=== PATIENT | female | born 1955 | race Caucasian/White ===

== ENCOUNTER 2017-01-29 18:34 | Inpatient (IN) | payer MEDICAID, OTHER ==
[~2017-01-29] VITALS: Ht 167.6 cm; Wt 73.2 kg
[2017-01-29] MEDS ORDERED: SOD CHLORIDE 0.9% 500 ML IV STA (21:22)
[2017-01-29 21:46] LABS: ADD SCAN DIFF NO
[2017-01-29 21:51] LABS: BASOPHILS % 0.4 % (0.0-2.0); EOSINOPHILS # 0.1 10^3/ul (0.0-0.5); HEMOGLOBIN 16.8 g/dl (12.0-16.0); LYMPHOCYTES # 2.5 10^3/ul (0.8-2.9); LYMPHOCYTES % 27.1 % (15.0-51.0); MEAN CORPUSCULAR HEMOGLOBIN 34.7 pg (29.0-33.0); MEAN CORPUSCULAR VOLUME 99.2 fl (82.0-101.0); MEAN PLATELET VOLUME 10.2 fl (7.4-10.4); MONOCYTE # 0.8 10^3/ul (0.3-0.9); MONOCYTES % 9.1 % (0.0-11.0); NEUTROPHIL # 5.7 10^3/ul (1.6-7.5); PLATELET COUNT 256 10^3/UL (140-415); RED BLOOD COUNT 4.84 10^6/ul (4.20-5.40); RED CELL DISTRIBUTION WIDTH 12.3 % (11.5-14.5); WHITE BLOOD COUNT 9.1 10^3/ul (4.8-10.8)
[2017-01-29 22:00] LABS: POTASSIUM 3.3 mmol/L (3.5-5.1)
[2017-01-29 22:01] LABS: INR 0.98; PARTIAL THROMBOPLASTIN TIME 27.4 Sec (25.0-35.0)
[2017-01-29 22:02] LABS: CREATININE 0.72 mg/dl (0.44-1.00)
[2017-01-29 22:03] LABS: CALCIUM 9.5 mg/dl (8.4-10.2)
[2017-01-29] MEDS ORDERED: morphine 4 MG/ML VIAL IV STA (22:10)
[2017-01-29] MEDS ORDERED: ONDANSETRON 4 MG INJ IV STA (22:10)
[2017-01-29 22:15] LABS: TROPONIN-I 0.012 ng/ml (0.00-0.12)
--- NOTE | 2017-01-29 22:20 | RADRPT ---
PROCEDURE: XR Chest. CLINICAL INDICATION: Syncope. TECHNIQUE: Portable AP upright view of the chest was obtained. COMPARISON: None available. FINDINGS: The cardiomediastinal silhouette is within normal limits. The lungs are clear. There is no evidenc e for pleural effusion, pneumothorax or pulmonary vascular congestion. The osseous structures are i ntact with no evidence for acute abnormality. RPTAT:HJJR IMPRESSION: No evidence for acute intrathoracic pathology. Physician Keyona Date Time Electronically viewed and signed by Physician Keyona on 01/29/2017 22:19 JR/
[2017-01-29] MEDS ORDERED: ESCI20TA38 PO (22:23)
[2017-01-29] MEDS ORDERED: GABA-528 PO (22:24)
[2017-01-29] MEDS ORDERED: IBUP800T25 PO (22:24)
--- NOTE | 2017-01-29 22:38 | RADRPT ---
PROCEDURE: CT Brain without contrast. CLINICAL INDICATION: Syncope TECHNIQUE: A CT of the brain was performed on a GE ZendyPlacepeed 64-slice CT scanner utilizing axial imaging from the skull base through the vertex without IV contrast. Multiplanar reformatted images were made. Images were reviewed on a PACS workstation. The CTDIvol is there was 41.30 mGy and the DLP is 789.11 mGycm. One of the following 3 dose reduction techniques were used: Automated exposure control; adjustment of the mA and/or kV according to patient size; or use of iterative reconstruction technique. COMPARISON: None available FINDINGS: There is no intracranial hemorrhage, mass effect, or midline shift. No extra-axial fluid collection is seen. The ventricles and sulci are age appropriate. Mild diffuse volume loss is present. Subtl e decreased attenuation is present in the bilateral centrum semiovale, periventricular white matter all compatible with mild chronic microvascular ischemic disease. moderate vascular calcifications o f the bilateral intracranial internal carotid arteries are present. The visualized scalp and calvarium are normal. The bilateral orbits are normal. The bilateral para nasal sinuses, mastoid air cells and middle ear cavities are clear. The presence of a left frontal 1 cm exostosis is noted. IMPRESSION: 1. No evidence of acute intracranial hemorrhage, infarcts or acute intracranial pathology. 2. Mild chronic microvascular ischemic disease and mild diffuse volume loss. 3. Mild atherosclerotic vascular disease RPTAT: HDC .Amy Collins MD, MD Date Time Electronically viewed and signed by .Amy Collins MD, MD on 01/29/2017 22:37 .C/
--- NOTE | 2017-01-29 23:04 | ERA ---
ER Documentation Chief Complaint Date/Time DATE: 01/29/17 TIME: 23:03 Chief Complaint S/P FALL 2 DAYS AGO, C/O GEN. BODY PAIN DENIES KO. NO BLOOD THINNERS HPI This is 58-year-old female status post fall 2 days ago. Complains of generalized body pain. She has had multiple falls over the past month. She does not know whether or not she passed out. Denies any chest pain. Denies any nausea vomiting fevers or chills. Denies any other current complaints. ROS All systems reviewed and are negative except as per history of present illness. Medications Home Meds Reported Medications Ibuprofen* (Ibuprofen*) 800 Mg Tab, 800 MG PO TID, TAB 01/29/17 Gabapentin* (Gabapentin*) 800 Mg Tablet, 800 MG PO TID, #90 TAB 01/29/17 Escitalopram Oxalate* (Escitalopram Oxalate*) 20 Mg Tablet, 20 MG PO DAILY, #30 TAB 01/29/17 Allergies Allergies: Coded Allergies: Penicillins (Unverified Allergy, Unknown, 01/29/17) aspirin (Unverified Allergy, Unknown, 01/29/17) PMhx/Soc History of Surgery: Yes (Bilatereal Carpel Tunnel, foot sx) Anesthesia Reaction: No Hx Miscellaneous Medical Probl: Yes (Chronic back pain) Hx Alcohol Use: No Hx Substance Use: No Hx Tobacco Use: Yes Smoking Status: Current every day smoker Physical Exam Vitals Vital Signs Date Time Temp Pulse Resp B/P Pulse Ox O2 Delivery O2 Flow Rate FiO2 01/29/17 22:12 77 18 144/87 100 Room Air 01/29/17 19:32 97.0 74 20 132/70 98 Physical Exam Const: [] Head: Atraumatic Eyes: Normal Conjunctiva ENT: Normal External Ears, Nose and Mouth. Neck: Full range of motion..~ No meningismus. Resp: Clear to auscultation bilaterally Cardio: Regular rate and rhythm, no murmurs Abd: Soft, non tender, non distended. Normal bowel sounds Skin: No petechiae or rashes Back: No midline or flank tenderness Ext: No cyanosis, or edema Neur: Awake and alert Psych: Normal Mood and Affect Result Diagram: 01/29/17213101/29/172131 Results 24 hrs Laboratory Tests Test 01/29/17 21:32 01/29/17 21:57 Activated Partial Thromboplast Time 27.4Sec Ammonia < 9umol/l Anion Gap 16 Basophils # 0.010^3/ul Basophils % 0.4% Blood Urea Nitrogen 11mg/dl Calcium Level 9.5mg/dl Carbon Dioxide Level 23mmol/L Chloride Level 100mmol/L Creatinine 0.72mg/dl Eosinophils # 0.110^3/ul Eosinophils % 1.0% Glucose Level 80mg/dl Hematocrit 48.0% Hemoglobin 16.8g/dl INR International Normalized Ratio 0.98 Lymphocytes # 2.510^3/ul Lymphocytes % 27.1% Mean Corpuscular Hemoglobin 34.7pg Mean Corpuscular Hemoglobin Concent 35.0g/dl Mean Corpuscular Volume 99.2fl Mean Platelet Volume 10.2fl Monocytes # 0.810^3/ul Monocytes % 9.1% Neutrophils # 5.710^3/ul Neutrophils % 62.0% Nucleated Red Blood Cells # 0.010^3/ul Nucleated Red Blood Cells % 0.0/100WBC Platelet Count 34582^3/UL Potassium Level 3.3mmol/L Prothrombin Time 13.0Sec Prothrombin Time Ratio 1.0 Red Blood Count 4.8410^6/ul Red Cell Distribution Width 12.3% Sodium Level 136mmol/L Troponin I 0.012ng/ml White Blood Count 9.110^3/ul Bedside Glucose 81mg/dL Current Medications Medications (Trade) Dose Ordered Sig/Anthony Route PRN Reason Start Time Stop Time Status Last Admin Dose Admin Sodium Chloride (NS) 500 ml @ 500 mls/hr Q1H STAT IV 01/29/17 21:22 01/29/17 22:21 DC 01/29/17 22:01 Morphine Sulfate (morphine) 4 mg ONCE STAT IV 01/29/17 22:10 01/29/17 22:12 DC 01/29/17 22:38 Ondansetron HCl (Zofran Inj) 4 mg ONCE STAT IV 01/29/17 22:10 01/29/17 22:12 DC 01/29/17 22:37 Procedures/MDM Chest X-ray 1V Interpreted by me: Soft Tissue: No acute abnormalities Bones: No acute abnormalities Mediastinum/Cardiac Silhouette/Lungs: No acute abnormalities EKG: Rate/Rhythm: Normal Sinus Rhythm QRS, ST, T-waves: No changes consistent w/ acute ischemia Impression: No evidence of ischemia or arrhythmia Patient's syncopal symptoms are unstable at this time and require inpatient workup. No evidence of PE or dissection at this time but occult ischemia or fatal dysrhythmia cannot be ruled out. Patient will be admitted to hospitalist. Made aware at 11 PM Departure Diagnosis: Primary Impression: Syncope Qualified Code: R55 - Syncope, unspecified syncope type Condition: Serious DARIO SEGOVIA Jan 29, 2017 23:04
[2017-01-29 23:51] VITALS: TEMP 98.9
[2017-01-30] VITALS (13 sets, daily range): BP systolic 117–149; BP diastolic 56–92; PULSE 64–76; RESP 18–19; Ht 167.6 cm; Wt 73.2 kg
[2017-01-30] MEDS ORDERED: ACETAMINOPHEN 325 MG TAB PO PRN
[2017-01-30] MEDS ORDERED: ALBUTEROL/IPRATROPIUM (NEB) 3 ML AMP HHN PRN
[2017-01-30] MEDS ORDERED: MAGNESIUM HYDROXIDE 30ML CUP PO PRN
[2017-01-30] MEDS ORDERED: NITROGLYCERIN (SL) 0.4 MG TAB SL PRN
[2017-01-30] MEDS ORDERED: DOCUSATE SODIUM 100 MG CAP PO PRN
[2017-01-30] MEDS ORDERED: hydrALAzine 20 MG INJ IV PRN
[2017-01-30] MEDS ORDERED: NA PHOSPHATE/BIPHOS 133 ML ENEMA PR PRN
[2017-01-30] MEDS ORDERED: NACL 0.9% 3 ML SYG IV SCH
[2017-01-30] MEDS ORDERED: ONDANSETRON 4 MG INJ IV PRN
[2017-01-30] MEDS: LORAZEPAM 2 MG INJ IV PRN ×2 (00:51→23:19)
[2017-01-30] MEDS: SOD CHLORIDE 0.45% 1,000 ML IV SCH ×2 (00:51→13:19)
[2017-01-30 04:07] LABS: CHOL/HDL RATIO 3.1 RATIO
--- NOTE | 2017-01-30 05:23 | HP ---
DATE OF ADMISSION: 01/29/2017 The patient was seen and examined by me on 01/29/2017 at 11:30 p.m. CHIEF COMPLAINT: Syncope. HISTORY OF PRESENT ILLNESS: A 61-year-old female with past medical history of chronic back pain, to bacco use who presents with a syncopal event. The patient apparently came from home. Most of the i nformation was obtained from the ER documentation as the patient is not able to provide any informat ion at this time. In the ER, she was conversing well. Denies any recent falls, no apparent history of any arrhythmias, no palpitations. No upper or lower GI bleeding, no fevers or chills. Denies a ny lower extremity swelling as well. The syncopal appeared to occur earlier today and family johnny t her in today as well because of that incident, although again she does not recall the actual falli ng incident. When she came into the ER today, she had a head CT performed that showed no evidence o f any acute intracranial hemorrhages or infarcts or acute intracranial pathology. PAST MEDICAL HISTORY: As above. ALLERGIES: 1. PENICILLIN. 2. ASPIRIN. HOME MEDICATIONS: 1. SSRI. 2. Gabapentin 800 mg. 3. Ibuprofen 800 mg. PAST SURGICAL HISTORY: She has had bilateral carpal tunnel surgery in the past and foot surgery in the past. SOCIAL HISTORY: Denies any IV drug abuse, no alcohol use. She does smoke every day. FAMILY HISTORY: Noncontributory. PHYSICAL EXAMINATION: VITAL SIGNS: T-max 97.0, pulse 74 to 77, respirations 18 to 20, blood pressure 144 to 132 systolic over 87 to 70 diastolic, saturating 100% on room air. GENERAL: The patient is lying in bed, in no acute distress. HEENT: Pupils equal, round, reactive to light. Extraocular muscles are intact. NECK: Supple. No thyromegaly. LUNGS: Clear to auscultation bilaterally. CARDIOVASCULAR: S1, S2 heard. No rubs or gallops. ABDOMEN: Soft, nontender, nondistended. Normal bowel sounds. No rebound. No guarding. MUSCULOSKELETAL: No lower extremity edema bilaterally. NEUROLOGIC: No focal deficits. LABORATORIES: CBC is completely normal. The basic metabolic panel is normal except the potassium i s a little low at 3.3. Troponin is negative. Ammonia was normal, and again the head CT results as mentioned above. UA is pending. There was also a chest x-ray performed. Chest x-ray showed no alton dence of any acute intrathoracic pathology. ASSESSMENT AND PLAN: A 61-year-old female with a syncopal event. 1. Syncope. We need to rule out any causes such as vasovagal versus arrhythmia versus medication o veruse versus stroke. Her head CT is negative. We will go ahead and get an MRI of the brain. We w ill keep her on telemetry floor and monitor her heart rate very carefully. If there are any abnorma lities, consider cardiology consult. Again, we are going to get an echocardiogram as well. Conside r neuro checks as well, although low suspicion for a stroke at this point. Check TSH, A1c, lipid pa ashok. 2. History of chronic back pain. Continue [place] and morphine p.r.n. 3. Smoking history. We need to do smoking cessation. 4. Generalized weakness. Again could be related to patient's syncopal event. Will get a physical therapy consult as well. 4. Gastrointestinal prophylaxis. Proton pump inhibitor. 5. Deep venous thrombosis prophylaxis. Heparin subcutaneously. Dictated By: BRIAN DOTY/MARK Conf#: [id number] DID#: [id number]
[2017-01-30] MEDS: PANTOPRAZOLE (EC) 40 MG TAB PO SCH (05:41)
[2017-01-30] MEDS: HYDROCODONE/APAP (5/325) TAB PO PRN ×3 (05:45→18:16)
[2017-01-30 06:12] LABS: ADD SCAN DIFF NO
[2017-01-30 06:30] LABS: BASOPHIL # 0.1 10^3/ul (0.0-0.1); BASOPHILS % 0.7 % (0.0-2.0); EOSINOPHILS # 0.2 10^3/ul (0.0-0.5); EOSINOPHILS % 2.4 % (0.0-7.0); HEMATOCRIT 46.2 % (37.0-47.0); HEMOGLOBIN 16.1 g/dl (12.0-16.0); LYMPHOCYTES # 2.1 10^3/ul (0.8-2.9); LYMPHOCYTES % 30.7 % (15.0-51.0); MEAN CORPUSCULAR HEMOGLOBIN 35.2 pg (29.0-33.0); MEAN CORPUSCULAR HGB CONC 34.8 g/dl (32.0-37.0); MEAN CORPUSCULAR VOLUME 100.9 fl (82.0-101.0); MEAN PLATELET VOLUME 10.3 fl (7.4-10.4); MONOCYTE # 0.7 10^3/ul (0.3-0.9); MONOCYTES % 10.6 % (0.0-11.0); NEUTROPHIL # 3.8 10^3/ul (1.6-7.5); NEUTROPHILS % 55.2 % (39.0-77.0); PLATELET COUNT 213 10^3/UL (140-415); RED BLOOD COUNT 4.58 10^6/ul (4.20-5.40); RED CELL DISTRIBUTION WIDTH 12.5 % (11.5-14.5)
[2017-01-30 06:38] LABS: CREATININE 0.62 mg/dl (0.44-1.00)
[2017-01-30 06:39] LABS: CALCIUM 8.5 mg/dl (8.4-10.2)
[2017-01-30] MEDS ORDERED: HEPARIN 5,000 UNIT/0.5 ML SYG SC SCH (09:00)
--- NOTE | 2017-01-30 10:28 | PN ---
Date/Time of Note Date/Time of Note DATE: 01/30/17 TIME: 10:23 Assessment/Plan VTE Prophylaxis VTE Prophylaxis Intervention: heparin Lines/Catheters IV [facility] Peripheral IV Urinary Cath still in place: No Assessment/Plan Assessment/Plan 1. Syncope. We need to rule out any causes such as vasovagal versus arrhythmia versus medication overuse versus stroke. Her head CT is negative. We will go ahead and get an MRI of the brain. We will keep her on telemetry floor and monitor her heart rate very carefully. If there are any abnormalities , consider cardiology consult. Again, we are going to get an echocardiogram as well. Consider neuro checks as well, although low suspicion for a stroke at this point. Check TSH, A1c, lipid panel. 2. History of chronic back pain. Continue [place] and morphine p.r.n. 3. Smoking history. We need to do smoking cessation. 4. Generalized weakness. Again could be related to patient's syncopal event. Will get a physical therapy consult as well. 4. Gastrointestinal prophylaxis. Proton pump inhibitor. 5. Deep venous thrombosis prophylaxis. Heparin subcutaneously. MRI brain carotid doppler US ECHO has been ordered will follow up on results and decide for further plan Subjective 24 Hr Interval Summary Free Text/Dictation c/o dizziness, BP stable,plan for MRI today Exam/Review of Systems Vital Signs Vitals Vital Signs Date Time Temp Pulse Resp B/P Pulse Ox O2 Delivery O2 Flow Rate FiO2 01/30/17 08:08 64 01/30/17 07:47 97.5 18 141/63 93 01/29/17 23:51 Room Air Intake and Output 01/29/17 01/29/17 01/30/17 15:00 23:00 07:00 Intake Total 650 ml Balance 650 ml Exam GENERAL: The patient is lying in bed, in no acute distress. HEENT: Pupils equal, round, reactive to light. Extraocular muscles are intact. NECK: Supple. No thyromegaly. LUNGS: Clear to auscultation bilaterally. CARDIOVASCULAR: S1, S2 heard. No rubs or gallops. ABDOMEN: Soft, nontender, nondistended. Normal bowel sounds. No rebound. No guarding. MUSCULOSKELETAL: No lower extremity edema bilaterally. NEUROLOGIC: No focal deficits. Results Result Diagram: 01/30/17 0553 01/30/17 0553 Results 24 hrs Laboratory Tests Test 01/29/17 21:32 01/29/17 21:57 01/30/17 03:30 01/30/17 05:53 Activated Partial Thromboplast Time 27.4 Ammonia < 9 L Anion Gap 16 13 Basophils # 0.0 0.1 Basophils % 0.4 0.7 Blood Urea Nitrogen 11 11 Calcium Level 9.5 8.5 Carbon Dioxide Level 23 23 Chloride Level 100 105 Creatinine 0.72 0.62 Eosinophils # 0.1 0.2 Eosinophils % 1.0 2.4 Glucose Level 80 79 Hematocrit 48.0 H 46.2 Hemoglobin 16.8 H 16.1 H INR International Normalized Ratio 0.98 Lymphocytes # 2.5 2.1 Lymphocytes % 27.1 30.7 Mean Corpuscular Hemoglobin 34.7 H 35.2 H Mean Corpuscular Hemoglobin Concent 35.0 34.8 Mean Corpuscular Volume 99.2 100.9 Mean Platelet Volume 10.2 10.3 Monocytes # 0.8 0.7 Monocytes % 9.1 10.6 Neutrophils # 5.7 3.8 Neutrophils % 62.0 55.2 Nucleated Red Blood Cells # 0.0 0.0 Nucleated Red Blood Cells % 0.0 0.0 Platelet Count 256 213 Potassium Level 3.3 L 3.0 L Prothrombin Time 13.0 Prothrombin Time Ratio 1.0 Red Blood Count 4.84 4.58 Red Cell Distribution Width 12.3 12.5 Sodium Level 136 138 Troponin I 0.012 White Blood Count 9.1 7.0 # Bedside Glucose 81 Cholesterol Level 168 Cholesterol/HDL Ratio 3.1 Free Thyroxine 1.19 HDL Cholesterol 53 Hemoglobin A1c 4.7 LDL Cholesterol, Calculated 81 Triglycerides Level 168 H Medications Medications Current Medications Ondansetron HCl (Zofran Inj) 4 mg Q6H PRN IV NAUSEA AND/OR VOMITING; Start at 00:00 Acetaminophen (Tylenol Tab) 650 mg Q6H PRN PO PAIN LEVEL 1-3 OR FEVER; Start at 00:00 Acetaminophen/ Hydrocodone Bitart ([place] (5/325)) 1 tab Q6H PRN PO MODERATE PAIN LEVEL 4-6 Last administered on 01/30/17t 05:45; Admin Dose 1 TAB; Start at 00:00 Morphine Sulfate (morphine) 2 mg Q4H PRN IV SEVERE PAIN LEVEL 7-10; Start 01/30 at 00:00 Docusate Sodium (Colace) 100 mg Q12H PRN PO CONSTIPATION; Start 01/30/17 at 00: 00 Magnesium Hydroxide (Milk Of Mag) 30 ml DAILY PRN PO CONSTIPATION; Start at 00:00 Sodium Biphosphate/ Sodium Phosphate (Fleet Enema) 133 ml DAILY PRN OR CONSTIPATION; Start 01/30/17 at 00:00 Pantoprazole (Protonix Tab) 40 mg DAILY@06 PO Last administered on 01/30/17 05 :41; Admin Dose 40 MG; Start 01/30/17 at 06:00 Heparin Sodium (Porcine) 5000 unit 5,000 unit Q12 SC Last administered on 08:21; Admin Dose 5,000 UNIT; Start 01/30/17 at 09:00 Sodium Chloride (1/2 NS) 1,000 ml @ 75 mls/hr [id number] IV Last administered on 01/30/17 00:51; Admin Dose 75 MLS/HR; Start 01/29/17 at 23:59 Lorazepam (Ativan) 0.5 mg Q6H PRN IV ANXIETY Last administered on 01/30/17 00: 51; Admin Dose 0.5 MG; Start 01/30/17 at 00:00 Hydralazine HCl (Apresoline) 10 mg Q6H PRN IV ELEVATED BLOOD PRESSURE; Start at 00:00 Nitroglycerin (Nitroglycerin (Sl Tab) 0.4 Mg) 1 tab Q5M PRN SL ANGINA; Start at 00:00 JAMES CISNEROS MD Jan 30, 2017 10:28
[2017-01-30] MEDS ORDERED: POTASSIUM CHLORIDE 20 MEQ in SOD CHLORIDE 0.9% 100 ML IVPB ONE (11:30)
--- NOTE | 2017-01-30 11:51 | RADRPT ---
Echocardiogram Report Patient Name: JOY DURON Gender: Female Date: 1955 Study Date: 30-Jan-2017 Internet Marketing Manager: Robert Solis [facility] Location: [address] [place] [address]. Physician: BRIAN BLEDSOE Quality: Good Procedures: Transthoracic echocardiogram with complete 2D, M-Mode, and doppler examination. Indications: Syncope. 2D/M Mode Doppler Measurement Value Normal Ranges Measurement Value Normal Ranges LVIDd 2D 4.7 3.5 - 5.6 cm AV Peak Mak 1.4 m/sec LVIDs 2D 2.3 2.1 - 4.1 cm AV Peak PG 8.0 mmHg FS 2D 50.9 % LVOT Peak Mak 1.2 m/sec LVPWd 2D 0.9 0.6 - 1.1 cm LVOT Peak PG 6.0 mmHg IVSd 2D 1.0 0.6 - 1.1 cm MV E Peak Mak 0.5 m/sec IVS/LVPW 2D 1.1 MV A Peak Mak 0.7 m/sec AoR Diam 2D 2.1 2.0 - 3.7 cm MV E/A 0.7 LA/Ao 2D 2 0 - 1 MV Decel Time 232 msec EDV 2D 101.0 cm3 MV E/A 0.7 ESV 2D 12.0 cm3 LA Dimen 2D 3.7 2.3 - 4.0 cm Findings Left Ventricle: Normal left ventricular systolic function. Normal left ventricular cavity size. Normal left ventricular wall thickness. Ejection fraction is visually estimated at 65 %. Tissue Doppler/Mitral Doppler indices are consistent with impaired relaxation (Stage I diastolic dysfunction). Right Ventricle: Normal right ventricular size. Normal right ventricular systolic function. Left Atrium: The left atrium is normal in size. Right Atrium: The right atrium is normal in size. Mitral Valve: Normal appearance and function of the mitral valve with trace physiologic regurgitation. Aortic Valve: Normal appearance of the aortic valve. No significant aortic stenosis or insufficiency. Tricuspid Valve: Normal appearance of the tricuspid valve. Unable to obtain RVSP due to minimal presence of tricuspid regurgitation. Pulmonic Valve: Normal pulmonic valve appearance. Pericardium: Normal pericardium with no significant pericardial effusion. Aorta: Normal aortic root. IVC: Normal size and normal respiratory collapse consistent with normal right atrial pressure. Conclusions 1.Normal left ventricular systolic function. Normal left ventricular cavity size. Normal left ventricular wall thickness. Ejection fraction is visually estimated at 65 %. Tissue Doppler/Mitral Doppler indices are consistent with impaired relaxation (Stage I diastolic dysfunction). 2.Normal appearance of the aortic valve. No significant aortic stenosis or insufficiency. 3.Normal appearance and function of the mitral valve with trace physiologic regurgitation. 4.Normal appearance of the tricuspid valve. Unable to obtain RVSP due to minimal presence of tricuspid regurgitation. Electronically Signed By: Xavier Gordon 30-Jan-2017 11:50:05 -0700 Patient Name: JOY DURON Study Date: 30-Jan-[id number]
--- NOTE | 2017-01-30 12:13 | RADRPT ---
PROCEDURE: US Carotids. CLINICAL INDICATION: Syncope TECHNIQUE: Multiple sonographic of the carotid arteries were obtained utilizing feliciano scale imaging . Color and Doppler imaging was performed. The images were reviewed on a PACS workstation. COMPARISON: No prior studies are available for comparison. FINDINGS: Location Right Left CCA 64 cm/sec 64 cm/sec Prox ICA 42 cm/sec 54 cm/sec Mid ICA 48 cm/sec 63 cm/sec Dist ICA 79 cm/sec 69 cm/sec ECA 78 cm/sec 63 cm/sec ICA/CCA 0.7 0.9 Antegrade flow is seen within the vertebral arteries bilaterally. Mild scattered plaque is seen with in the carotid bulbs bilaterally. No hemodynamically significant stenosis or occlusion is identifie d. IMPRESSION: 1. Mild scattered plaque without evidence for hemodynamically significant stenosis - validated veloc ity measurements with angiographic measurements, velocity criteria are extrapolated from diameter da ta as defined by the Society of Radiologists in Ultrasound Consensus Conference Radiology 2003; 229; 340-346. This study does indirectly reference the measurement of the distal ICA diameter as the den ominator for stenosis measurement. 2. Antegrade flow seen within the vertebral arteries bilaterally. SRU Consensus Conference Criteria for the Diagnosis of Carotid Artery Stenosis Degree of Stenosis, % ICA PSV, cm/sec Plaque Estimate, % ICA/CCA PSV Ratio Normal <125 None <2.0 <50 <125 <50 <2.0 50 69 125-230 >50 2.0-4.0 >70 but less than near occlusion >230 >50 <4.0 Near occlusion High, low, or undetectable Visible Variable Total occlusion Undetectable Visible, no detectable lumen Not applicable *Cartoid artery stenosis: feliciano-scale and Doppler US diagnosis. Society of Radiologists in Ultrasound Consensus Conference. Radiology 2003; 229: 340-346 RPTAT: JJ .Steve Nicole MD, Date Time Electronically viewed and signed by .Steve Nicole MD, on 01/30/2017 12:13 .A/
[2017-01-30 13:51] LABS: ADD UMIC YES; URINE BILIRUBIN (Dip) NEGATIVE (NEGATIVE); URINE BLOOD (Dip) TRACE (NEGATIVE); URINE COLOR LT. YELLOW (YELLOW); URINE GLUCOSE (Dip) NEGATIVE (NEGATIVE); URINE KETONES (Dip) NEGATIVE (NEGATIVE); URINE LEUKOCYTE ESTERASE (Dip) NEGATIVE (NEGATIVE); URINE NITRITE (Dip) NEGATIVE (NEGATIVE); URINE TOTAL PROTEIN (Dip) NEGATIVE (NEGATIVE); URINE UROBILINOGEN (Dip) 0.2 E.U./dL (0.1-1.0)
[2017-01-30 13:59] LABS: BACTERIA,URINE FEW; URINE RBCS 0-2 /HPF (0)
[2017-01-30] MEDS: morphine 2 MG INJ IV PRN (20:38)
[2017-01-31] VITALS (9 sets, daily range): BP systolic 125–159; BP diastolic 70–85; PULSE 50–73; RESP 16–20
[2017-01-31 06:13] LABS: ADD SCAN DIFF NO
[2017-01-31 06:26] LABS: BASOPHILS % 0.7 % (0.0-2.0); EOSINOPHILS # 0.2 10^3/ul (0.0-0.5); EOSINOPHILS % 3.4 % (0.0-7.0); HEMATOCRIT 46.8 % (37.0-47.0); HEMOGLOBIN 16.3 g/dl (12.0-16.0); LYMPHOCYTES # 1.8 10^3/ul (0.8-2.9); LYMPHOCYTES % 29.5 % (15.0-51.0); MEAN CORPUSCULAR HEMOGLOBIN 35.5 pg (29.0-33.0); MEAN CORPUSCULAR HGB CONC 34.8 g/dl (32.0-37.0); MEAN PLATELET VOLUME 10.5 fl (7.4-10.4); MONOCYTE # 0.5 10^3/ul (0.3-0.9); MONOCYTES % 8.9 % (0.0-11.0); NEUTROPHIL # 3.4 10^3/ul (1.6-7.5); NEUTROPHILS % 57.2 % (39.0-77.0); PLATELET COUNT 228 10^3/UL (140-415); RED BLOOD COUNT 4.59 10^6/ul (4.20-5.40); RED CELL DISTRIBUTION WIDTH 12.2 % (11.5-14.5); WHITE BLOOD COUNT 5.9 10^3/ul (4.8-10.8)
[2017-01-31] MEDS: PANTOPRAZOLE (EC) 40 MG TAB PO SCH (06:27)
[2017-01-31 06:29] LABS: POTASSIUM 3.4 mmol/L (3.5-5.1)
[2017-01-31 06:31] LABS: CREATININE 0.61 mg/dl (0.44-1.00)
[2017-01-31 06:32] LABS: CALCIUM 8.7 mg/dl (8.4-10.2)
[2017-01-31 06:39] LABS: INR 0.97; PROTIME 12.9 Sec (12.2-14.2)
[2017-01-31 06:40] LABS: PARTIAL THROMBOPLASTIN TIME 25.8 Sec (25.0-35.0)
[2017-01-31] MEDS ORDERED: POTASSIUM CHLORIDE (SR) 20 MEQ TAB PO ONE (06:50)
--- NOTE | 2017-01-31 07:07 | RADRPT ---
PROCEDURE: MR Brain without contrast. CLINICAL INDICATION: Dizziness and syncope TECHNIQUE: 8 pulse sequences were obtained of the brain without contrast administration using a 1. 5 Breanne magnet. Standard MRI of the brain without contrast protocols were performed. COMPARISON: None FINDINGS: The ventricular system and peripheral CSF spaces are proportionately prominent consistent with moder ate generalized cerebral atrophy. Negative for intracranial masses hemorrhages or recent infarcts. There is mild to moderate confluent increase signal in the periventricular deep white matter as wel l as a moderate to extensive hyper T2 foci in the periventricular and subcortical deep white matter that is nonspecific and may all represent chronic microvascular ischemic changes. Demyelinating dis ease such as multiple sclerosis is felt to be less likely however CSF sampling may be useful for fur ther evaluation. There is normal flow void involving the carotid siphons and basilar artery. There is a small exostosis involving the medial anterior left frontal calvarium that is nonspecific and r ecommend clinical correlation. IMPRESSION: 1. Periventricular and subcortical deep white matter changes as described above that is nonspecific and may all represent chronic microvascular ischemic changes. Demyelinating disease such as multip le sclerosis is felt to be less likely however CSF sampling may be useful for further evaluation. 2. Moderate generalized cerebral atrophy. 3. Negative for intracranial masses hemorrhages or midline shift. RPTAT:AAJJ Physician Juanpablo Date Time Electronically viewed and signed by Physician Juanpablo on 01/31/2017 07:07 /
[2017-01-31] MEDS ORDERED: POTASSIUM CHLORIDE (SR) 20 MEQ TAB PO STA (11:13)
--- NOTE | 2017-01-31 11:13 | PN ---
Date/Time of Note Date/Time of Note DATE: 01/31/17 TIME: 11:10 Assessment/Plan VTE Prophylaxis VTE Prophylaxis Intervention: heparin Lines/Catheters IV Catheter Type (from [facility]): Peripheral IV Urinary Cath still in place: No Assessment/Plan Assessment/Plan 1. Syncope 2. History of chronic back pain. Continue [place] and morphine p.r.n. 3. Smoking history. We need to do smoking cessation. 4. Generalized weakness. Again could be related to patient's syncopal event. Will get a physical therapy consult as well. 4. Gastrointestinal prophylaxis. Proton pump inhibitor. 5. Deep venous thrombosis prophylaxis. Heparin subcutaneously. MRI brain carotid doppler US showed atherosclerosis, no stenosis by criteria ECHO showed EF 65%, stage I diastolic dysfunction MRI brain showed extensive white matter changes, no acute CVA downgrade to med/surge floor Subjective 24 Hr Interval Summary Free Text/Dictation MRI negative for acute CVA, BP stable, afebrile Exam/Review of Systems Vital Signs Vitals Vital Signs Date Time Temp Pulse Resp B/P Pulse Ox O2 Delivery O2 Flow Rate FiO2 01/31/17 08:58 71 01/31/17 07:19 98.2 20 138/77 96 01/29/17 23:51 Room Air Intake and Output 01/30/17 01/30/17 01/31/17 15:00 23:00 07:00 Intake Total 90 ml 500 ml Balance 90 ml 500 ml Results Result Diagram: 01/31/17 0555 01/31/17 0555 Results 24 hrs Laboratory Tests Test 01/30/17 13:00 01/31/17 05:55 Urine Bacteria FEW Urine Bilirubin NEGATIVE Urine Clarity CLEAR Urine Color LT. YELLOW Urine Epithelial Cells FEW Urine Glucose NEGATIVE Urine Hemoglobin TRACE Urine Ketones NEGATIVE Urine Leukocyte Esterase NEGATIVE Urine Microscopic RBC 0-2 Urine Microscopic WBC 0-2 Urine Nitrite NEGATIVE Urine Specific [place] 1.010 Urine Total Protein NEGATIVE Urine Urobilinogen 0.2 E.U./dL Urine pH 6.0 Activated Partial Thromboplast Time 25.8 Anion Gap 11 Basophils # 0.0 Basophils % 0.7 Blood Urea Nitrogen 11 Calcium Level 8.7 Carbon Dioxide Level 26 Chloride Level 108 Creatinine 0.61 Eosinophils # 0.2 Eosinophils % 3.4 Glucose Level 84 Hematocrit 46.8 Hemoglobin 16.3 H INR International Normalized Ratio 0.97 Lymphocytes # 1.8 Lymphocytes % 29.5 Mean Corpuscular Hemoglobin 35.5 H Mean Corpuscular Hemoglobin Concent 34.8 Mean Corpuscular Volume 102.0 H Mean Platelet Volume 10.5 H Monocytes # 0.5 Monocytes % 8.9 Neutrophils # 3.4 Neutrophils % 57.2 Nucleated Red Blood Cells # 0.0 Nucleated Red Blood Cells % 0.0 Platelet Count 228 Potassium Level 3.4 L Prothrombin Time 12.9 Prothrombin Time Ratio 1.0 Red Blood Count 4.59 Red Cell Distribution Width 12.2 Sodium Level 142 White Blood Count 5.9 Medications Medications Current Medications Ondansetron HCl (Zofran Inj) 4 mg Q6H PRN IV NAUSEA AND/OR VOMITING; Start at 00:00 Acetaminophen (Tylenol Tab) 650 mg Q6H PRN PO PAIN LEVEL 1-3 OR FEVER; Start at 00:00 Acetaminophen/ Hydrocodone Bitart ([place] (5/325)) 1 tab Q6H PRN PO MODERATE PAIN LEVEL 4-6 Last administered on 01/30/17 18:16; Admin Dose 1 TAB; Start at 00:00 Morphine Sulfate (morphine) 2 mg Q4H PRN IV SEVERE PAIN LEVEL 7-10 Last administered on 01/30/17 20:38; Admin Dose 2 MG; Start 01/30/17 at 00:00 Docusate Sodium (Colace) 100 mg Q12H PRN PO CONSTIPATION; Start 01/30/17 at 00: 00 Magnesium Hydroxide (Milk Of Mag) 30 ml DAILY PRN PO CONSTIPATION; Start at 00:00 Sodium Biphosphate/ Sodium Phosphate (Fleet Enema) 133 ml DAILY PRN [place] CONSTIPATION; Start 01/30/17 at 00:00 Pantoprazole (Protonix Tab) 40 mg DAILY@06 PO Last administered on 01/31/17 06 :27; Admin Dose 40 MG; Start 01/30/17 at 06:00 Lorazepam (Ativan) 0.5 mg Q6H PRN IV ANXIETY Last administered on 01/30/17 23: 19; Admin Dose 0.5 MG; Start 01/30/17 at 00:00 Hydralazine HCl (Apresoline) 10 mg Q6H PRN IV ELEVATED BLOOD PRESSURE; Start at 00:00 Nitroglycerin (Nitroglycerin (Sl Tab) 0.4 Mg) 1 tab Q5M PRN SL ANGINA; Start at 00:00 JAMES CISNEROS MD Jan 31, 2017 11:13
[2017-01-31] MEDS: morphine 2 MG INJ IV PRN ×3 (12:23→21:03)
[2017-01-31] MEDS: DIPHENHYDRAMINE 50 MG INJ IV PRN (16:56)
[2017-01-31] MEDS: LORAZEPAM 2 MG INJ IV PRN (22:42)
[2017-02-01 05:48] LABS: ADD SCAN DIFF NO
[2017-02-01 05:55] LABS: BASOPHIL # 0.1 10^3/ul (0.0-0.1); BASOPHILS % 0.7 % (0.0-2.0); EOSINOPHILS # 0.2 10^3/ul (0.0-0.5); EOSINOPHILS % 3.1 % (0.0-7.0); HEMATOCRIT 48.4 % (37.0-47.0); HEMOGLOBIN 16.4 g/dl (12.0-16.0); LYMPHOCYTES # 2.1 10^3/ul (0.8-2.9); LYMPHOCYTES % 28.7 % (15.0-51.0); MEAN CORPUSCULAR HEMOGLOBIN 34.5 pg (29.0-33.0); MEAN CORPUSCULAR HGB CONC 33.9 g/dl (32.0-37.0); MEAN CORPUSCULAR VOLUME 101.9 fl (82.0-101.0); MEAN PLATELET VOLUME 10.6 fl (7.4-10.4); MONOCYTE # 0.7 10^3/ul (0.3-0.9); MONOCYTES % 9.5 % (0.0-11.0); NEUTROPHIL # 4.1 10^3/ul (1.6-7.5); NEUTROPHILS % 57.7 % (39.0-77.0); PLATELET COUNT 205 10^3/UL (140-415); RED BLOOD COUNT 4.75 10^6/ul (4.20-5.40); RED CELL DISTRIBUTION WIDTH 12.2 % (11.5-14.5); WHITE BLOOD COUNT 7.2 10^3/ul (4.8-10.8)
[2017-02-01 06:05] LABS: POTASSIUM 3.9 mmol/L (3.5-5.1)
[2017-02-01 06:08] LABS: CALCIUM 8.9 mg/dl (8.4-10.2); CREATININE 0.61 mg/dl (0.44-1.00)
[2017-02-01] MEDS: PANTOPRAZOLE (EC) 40 MG TAB PO SCH (06:37)
[2017-02-01] MEDS: HYDROCODONE/APAP (5/325) TAB PO PRN ×2 (06:49→11:58)
[2017-02-01 08:33] VITALS: BP 150/66; RESP 21
[2017-02-01] MEDS: morphine 2 MG INJ IV PRN ×4 (09:31→21:52)
[2017-02-01] MEDS: LORAZEPAM 2 MG INJ IV PRN (11:58)
[2017-02-01] MEDS: DIPHENHYDRAMINE 50 MG INJ IV PRN (13:16)
--- NOTE | 2017-02-01 16:40 | PN ---
DATE: 02/01/2017 TIME OF EVALUATION: 1500. SUBJECTIVE DATA: The patient has been refusing physical therapy. The patient complains of severe pain all over the body. OBJECTIVE DATA: VITAL SIGNS: Temperature 98.1, pulse of 64, respiratory rate 21, blood pressure 150/66, oxygen saturation 97% on room air. GENERAL: This is a well-built, well-nourished female patient, lying in bed in no apparent distress. HEENT: Head normocephalic and atraumatic. Eyes, anicteric sclerae. Conjunctivae are clear. ENT: Nasal septum is midline. Oral mucosa is dry. NECK: Supple. No JVD noticed. RESPIRATORY: Bilaterally clear to auscultation. No adventitious breath sounds. No use of accessory muscles of respiration. CARDIAC: Regular rate and rhythm. No murmur is heard. ABDOMEN: Soft, nontender and nondistended. Bowel sounds positive in all 4 quadrants. GENITOURINARY: Deferred. EXTREMITIES: No cyanosis, no clubbing, no edema. Peripheral pulses palpable. NEUROLOGIC: The patient is awake, alert and oriented. Cranial nerves are grossly intact. LABORATORY AND DIAGNOSTIC DATA: WBC 7.2, hemoglobin 16.4, hematocrit 48.4, platelet count 205. Sodium 142, potassium 3.9, chloride 107, carbon dioxide 27 , anion gap 12, BUN 9, creatinine 0.69, glucose 82, calcium 8.9. ASSESSMENT AND PLAN: 1. Syncope. Workup so far is negative. Carotid Doppler study negative for any hemodynamically significant stenosis. Brain CT scan negative for any acute intracranial findings. Brain MRI also negative for any acute stroke. Status post speech therapy evaluation. Pending physical therapy evaluation. 2. Chronic pain syndrome. Continue pain control. 3. Fluids, electrolytes and nutrition. Continue a low cholesterol diet. 4. Deep venous thrombosis prophylaxis. Bilateral sequential compression devices. 5. Gastrointestinal prophylaxis with proton pump inhibitors. PLAN: Await physical therapy evaluation. Continue pain control. The case was discussed with Dr. Caldwell. XIN CALDWELL MD, AM/MARK Conf#: [id number] DID#: [id number] MTDD
[2017-02-01 21:19] VITALS: BP 134/83; RESP 16
[2017-02-02] MEDS: morphine 2 MG INJ IV PRN ×3 (03:19→19:41)
[2017-02-02] MEDS: PANTOPRAZOLE (EC) 40 MG TAB PO SCH (05:08)
[2017-02-02 05:21] LABS: ADD SCAN DIFF NO
[2017-02-02 05:25] LABS: BASOPHILS % 0.6 % (0.0-2.0); EOSINOPHILS # 0.3 10^3/ul (0.0-0.5); EOSINOPHILS % 3.9 % (0.0-7.0); HEMATOCRIT 47.6 % (37.0-47.0); HEMOGLOBIN 16.2 g/dl (12.0-16.0); LYMPHOCYTES # 1.8 10^3/ul (0.8-2.9); MEAN CORPUSCULAR HEMOGLOBIN 34.8 pg (29.0-33.0); MEAN CORPUSCULAR VOLUME 102.4 fl (82.0-101.0); MEAN PLATELET VOLUME 10.5 fl (7.4-10.4); MONOCYTE # 0.6 10^3/ul (0.3-0.9); MONOCYTES % 9.1 % (0.0-11.0); NEUTROPHIL # 4.1 10^3/ul (1.6-7.5); NEUTROPHILS % 60.3 % (39.0-77.0); PLATELET COUNT 217 10^3/UL (140-415); RED BLOOD COUNT 4.65 10^6/ul (4.20-5.40); RED CELL DISTRIBUTION WIDTH 12.1 % (11.5-14.5); WHITE BLOOD COUNT 6.9 10^3/ul (4.8-10.8)
[2017-02-02 05:46] LABS: POTASSIUM 4.2 mmol/L (3.5-5.1)
[2017-02-02 05:48] LABS: CREATININE 0.64 mg/dl (0.44-1.00); PHOSPHORUS 3.9 mg/dl (2.5-4.9)
[2017-02-02 05:49] LABS: CALCIUM 8.9 mg/dl (8.4-10.2); MAGNESIUM 1.9 mg/dl (1.7-2.5)
[2017-02-02 07:30] VITALS: BP 121/67; RESP 18
--- NOTE | 2017-02-02 12:16 | PN ---
Date/Time of Note Date/Time of Note DATE: 02/02/17 TIME: 12:14 Assessment/Plan VTE Prophylaxis VTE Prophylaxis Intervention: SCD's Lines/Catheters IV [facility] (from [facility] Saline Lock Urinary Cath still in place: No Assessment/Plan Assessment/Plan 1. Syncope 2. History of chronic back pain. Continue [place] and morphine p.r.n. 3. Smoking history. We need to do smoking cessation. 4. Generalized weakness. Again could be related to patient's syncopal event. Will get a physical therapy consult as well. 4. Gastrointestinal prophylaxis. Proton pump inhibitor. 5. Deep venous thrombosis prophylaxis. Heparin subcutaneously. MRI brain carotid doppler US showed atherosclerosis, no stenosis by criteria ECHO showed EF 65%, stage I diastolic dysfunction MRI brain showed extensive white matter changes, no acute CVA possibel d/c home today Subjective 24 Hr Interval Summary Free Text/Dictation doing better, no acute events overnight, Exam/Review of Systems Vital Signs Vitals Vital Signs Date Time Temp Pulse Resp B/P Pulse Ox O2 Delivery O2 Flow Rate FiO2 02/02/17 07:30 97.5 68 18 121/67 97 01/29/17 23:51 Room Air Intake and Output 02/01/17 02/01/17 02/02/17 15:00 23:00 07:00 Intake Total 880 ml 640 ml Balance 880 ml 640 ml Exam GENERAL: The patient is lying in bed, in no acute distress. HEENT: Pupils equal, round, reactive to light. Extraocular muscles are intact. NECK: Supple. No thyromegaly. LUNGS: Clear to auscultation bilaterally. CARDIOVASCULAR: S1, S2 heard. No rubs or gallops. ABDOMEN: Soft, nontender, nondistended. Normal bowel sounds. No rebound. No guarding. MUSCULOSKELETAL: No lower extremity edema bilaterally. NEUROLOGIC: No focal deficits. Results Result Diagram: 02/02/17 0437 02/02/17 0457 Results 24 hrs Laboratory Tests Test 02/02/17 04:37 02/02/17 04:57 Basophils # 0.0 Basophils % 0.6 Eosinophils # 0.3 Eosinophils % 3.9 Hematocrit 47.6 H Hemoglobin 16.2 H Lymphocytes # 1.8 Lymphocytes % 26.0 Mean Corpuscular Hemoglobin 34.8 H Mean Corpuscular Hemoglobin Concent 34.0 Mean Corpuscular Volume 102.4 H Mean Platelet Volume 10.5 H Monocytes # 0.6 Monocytes % 9.1 Neutrophils # 4.1 Neutrophils % 60.3 Nucleated Red Blood Cells # 0.0 Nucleated Red Blood Cells % 0.0 Platelet Count 217 Red Blood Count 4.65 Red Cell Distribution Width 12.1 White Blood Count 6.9 Anion Gap 11 Blood Urea Nitrogen 9 Calcium Level 8.9 Carbon Dioxide Level 28 Chloride Level 106 Creatinine 0.64 Glucose Level 85 Magnesium Level 1.9 Phosphorus Level 3.9 Potassium Level 4.2 Sodium Level 141 Medications Medications Current Medications Ondansetron HCl (Zofran Inj) 4 mg Q6H PRN IV NAUSEA AND/OR VOMITING; Start at 00:00 Acetaminophen (Tylenol Tab) 650 mg Q6H PRN PO PAIN LEVEL 1-3 OR FEVER; Start at 00:00 Acetaminophen/ Hydrocodone Bitart ([place] (5/325)) 1 tab Q6H PRN PO MODERATE PAIN LEVEL 4-6 Last administered on 02/01/17 11:58; Admin Dose 1 TAB; Start at 00:00 Morphine Sulfate (morphine) 2 mg Q4H PRN IV SEVERE PAIN LEVEL 7-10 Last administered on 02/02/17 03:19; Admin Dose 2 MG; Start 01/30/17 at 00:00 Docusate Sodium (Colace) 100 mg Q12H PRN PO CONSTIPATION; Start 01/30/17 at 00: 00 Magnesium Hydroxide (Milk Of Mag) 30 ml DAILY PRN PO CONSTIPATION; Start at 00:00 Sodium Biphosphate/ Sodium Phosphate (Fleet Enema) 133 ml DAILY PRN [place] CONSTIPATION; Start 01/30/17 at 00:00 Pantoprazole (Protonix Tab) 40 mg DAILY@06 PO Last administered on 02/02/17 05 :08; Admin Dose 40 MG; Start 01/30/17 at 06:00 Lorazepam (Ativan) 0.5 mg Q6H PRN IV ANXIETY Last administered on 02/01/17 11: 58; Admin Dose 0.5 MG; Start 01/30/17 at 00:00 Hydralazine HCl (Apresoline) 10 mg Q6H PRN IV ELEVATED BLOOD PRESSURE; Start at 00:00 Nitroglycerin (Nitroglycerin (Sl Tab) 0.4 Mg) 1 tab Q5M PRN SL ANGINA; Start at 00:00 Diphenhydramine HCl (Benadryl) 25 mg Q6H PRN IV ITCHING Last administered on 13:16; Admin Dose 25 MG; Start 01/31/17 at 17:00 JAMES CISNEROS MD Feb 02, 2017 12:16
--- NOTE | 2017-02-02 12:16 | PDOCDIS ---
Discharge Instructions CONDITION Patient Condition: Good HOME CARE INSTRUCTIONS: Special Diet: cardiac diet ACTIVITY: Activity Restrictions: Slowly Increase Activity Rest between Activity Avoid heavy lifting Avoid Heavy Housework FOLLOW UP/APPOINTMENTS Appointments follow up with her own PMD through [facility] in 1-2 week after discharge JAMES CISNEROS MD Feb 02, 2017 12:16
[2017-02-02 20:28] VITALS: BP 139/97; RESP 20
--- NOTE | 2017-02-02 20:48 | RADRPT ---
PROCEDURE: MR Lumbar Spine without and with contrast. CLINICAL INDICATION: Acute intractable back pain TECHNIQUE: An MRI of the lumbar spine was performed utilizing the following sequences: Sagittal T1 -weighted, sagittal T2-weighted, sagittal STIR, axial T2-weighted dual echo. Following the intraveno us injection of 10 cc [place], postcontrast axial sagittal T1 fat suppressed images are obtained COMPARISON: None available. FINDINGS: Vertebral bodies: An approximately 11 degrees scoliosis convex to the right is present with the apex at L3. There is lower T1 and high a T2 signal with enhancement involving the endplates at 45 sligh tly asymmetric to the left. Similar signal changes are seen anteriorly at 5 S1 at the midline. The re is no evidence of acute compression deformity. Severe anterior spondylosis is present throughout the lumbar spine. A grade 2 anterolisthesis of L4 relative to L5 is estimated at 9 mm. Conus medularis region: Normal in signal intensity and location terminating at the L1 level. There is no evidence of pathologic intraspinal enhancement. T12-L1: Inferior T12 Schmorl's node is present with preserved disk signal intensity and stature with out protrusion. There is no facet arthropathy. The central canal is patent. There is no evidence f or foraminal stenosis. No pathologic enhancement is present. L1-L2: Preservation of disk signal intensity with mild diffuse loss of disk stature slightly asymmet noe to the left but no evidence of disk protrusion, only trace disk bulging of 2 mm is present. Mini mal left greater than right facet arthropathy is noted. The ligamentum flava are normal in thickness . The central canal is patent. Trace left foraminal stenosis is present the right foramen is paten t. No pathologic enhancement is present. L2-L3: Disk signal loss with severe loss of disk stature and some mild type 1 endplate degenerative signal changes asymmetric to the right with faint enhancement. Retrolisthesis of 3 mm is present. A circumferential osteophyte and disk complex is noted extending into the foramina. Mild bilateral f acet arthropathy with some facet joint fluid is present slightly greater on the right unable to excl ude synovitis. The ligamentum flava are normal in thickness. The central canal is patent. Mild gloria ateral lateral recess and foraminal stenosis is noted. L3-L4: Disk is signal loss with asymmetric severe disk stature loss to the left. A circumferential 5 mm osteophyte and disk complex extends into the left greater than right foramen. Moderate left and mild right facet arthropathy is present. The ligamentum flava are normal in thickness. Mild centra l canal stenosis is noted the AP dimension of the canal is approximately 8 mm. Osteophyte and disk complex causes severe left and moderate right foraminal stenosis. No pathologic enhancement is prese nt. L4-L5: Loss of disk stature with some linear hyperintense T2 signal in the in the posterior aspect o f the disk that does not have enhancement, findings likely a typical degenerative signal changes. T he disk stature loss is severe and there is a broad-based degenerative protrusion of 6 mm with disk material extending into the foramina bilaterally. Severe bilateral facet arthropathy is present with some facet fluid and enhancement consistent with facet synovitis. Ligamentum flavum hypertrophy of 5 mm is present bilaterally. The combination of findings cause severe central stenosis the AP dimen christopher of the thecal sac approximately 4 mm with severe bilateral lateral recess stenosis. The disk m aterial extends into the foramina bilaterally. Severe bilateral foraminal stenosis is present. L5-S1: Severe degenerative disk narrowing with degenerative disk signal loss and a circumferential 4 mm osteophyte and disk complex slightly asymmetric to the left. Moderate right greater than left fa cet arthropathy is present without evidence of enhancement. The ligamentum flava are normal in thick ness. Mild central canal stenosis of 8 mm is present. Osteophyte and disk material contribute to s evere bilateral foraminal stenosis. Sacrum and sacroiliac joints: No abnormalities are identified, the joints are normal and symmetric. None spine related findings: No abnormalities are demonstrated. RPTAT:HJJR IMPRESSION: 1. Severe acquired central canal stenosis at L4-5 caused by facet arthropathy, grade 2 anterolisthe sis with severe degenerative disk narrowing and disk material as well as facet synovitis and ligamen lisa flavum hypertrophy contributing to severe bilateral lateral recess and foraminal narrowing. 2. The enhancement of the L4-5 endplates is believed to be degenerative rather than infectious or i nflammatory, atypical degenerative signal change within the L4-5 disk is present without disk enhanc ement. 3. Severe degenerative disk narrowing with endplate signal changes and enhancement to a lesser exte nt is seen at L5-S1 with mild central canal stenosis and severe bilateral foraminal narrowing caused by osteophyte and disk complex. 4. Mild central canal stenosis at L3-4 caused by degenerative disk disease asymmetric to the left a nd some facet arthropathy with severe left and moderate right foraminal stenosis. 5. Retrolisthesis, disk material and subtle asymmetric right endplate changes at L2-3 with some fac et synovitis but no significant central canal stenosis and only mild bilateral foraminal narrowing. 6. Approximately 10 degrees dextroscoliosis without evidence of compression fracture. Vinicius Mejia Physician Date Time Electronically viewed and signed by Vinicius Mejia Physician on 02/02/2017 20:47 JR/
[2017-02-02] MEDS: DIPHENHYDRAMINE 50 MG INJ IV PRN (21:59)
[2017-02-03] MEDS ORDERED: ZOLPIDEM 5 MG TAB PO ONE (01:00)
[2017-02-03] MEDS: morphine 2 MG INJ IV PRN ×2 (02:03→09:53)
[2017-02-03] MEDS: PANTOPRAZOLE (EC) 40 MG TAB PO SCH (05:18)
[2017-02-03 06:30] LABS: ADD SCAN DIFF NO
[2017-02-03 06:54] LABS: BASOPHILS % 0.4 % (0.0-2.0); EOSINOPHILS # 0.2 10^3/ul (0.0-0.5); EOSINOPHILS % 3.6 % (0.0-7.0); HEMATOCRIT 44.9 % (37.0-47.0); HEMOGLOBIN 15.7 g/dl (12.0-16.0); MEAN CORPUSCULAR HEMOGLOBIN 35.4 pg (29.0-33.0); MEAN CORPUSCULAR VOLUME 101.4 fl (82.0-101.0); MEAN PLATELET VOLUME 10.9 fl (7.4-10.4); MONOCYTE # 0.7 10^3/ul (0.3-0.9); MONOCYTES % 9.6 % (0.0-11.0); NEUTROPHIL # 3.9 10^3/ul (1.6-7.5); NEUTROPHILS % 57.1 % (39.0-77.0); PLATELET COUNT 214 10^3/UL (140-415); RED BLOOD COUNT 4.43 10^6/ul (4.20-5.40); RED CELL DISTRIBUTION WIDTH 11.9 % (11.5-14.5); WHITE BLOOD COUNT 6.8 10^3/ul (4.8-10.8)
[2017-02-03 07:06] LABS: POTASSIUM 3.7 mmol/L (3.5-5.1)
[2017-02-03 07:08] LABS: CREATININE 0.61 mg/dl (0.44-1.00)
[2017-02-03 07:09] LABS: CALCIUM 8.9 mg/dl (8.4-10.2)
[2017-02-03 08:47] VITALS: BP 140/72; RESP 18
--- NOTE | 2017-02-03 12:47 | PN ---
Date/Time of Note Date/Time of Note DATE: 02/03/17 TIME: 12:45 Assessment/Plan VTE Prophylaxis VTE Prophylaxis Intervention: SCD's Lines/Catheters IV Catheter Type (from [facility]): [place] Urinary Cath still in place: No Assessment/Plan Assessment/Plan 1. Syncope 2. History of chronic back pain. Continue [place] and morphine p.r.n. 3. Smoking history. We need to do smoking cessation. 4. Generalized weakness. Again could be related to patient's syncopal event. Will get a physical therapy consult as well. 4. Gastrointestinal prophylaxis. Proton pump inhibitor. 5. Deep venous thrombosis prophylaxis. Heparin subcutaneously. MRI brain carotid doppler US showed atherosclerosis, no stenosis by criteria ECHO showed EF 65%, stage I diastolic dysfunction MRI brain showed extensive white matter changes, no acute CVA MRI LS spine showed severe degenerative disease with spinal canal stenosis pain control PT evaluation follow up Subjective 24 Hr Interval Summary Free Text/Dictation still c/o intractable abdominal pain Exam/Review of Systems Vital Signs Vitals Vital Signs Date Time Temp Pulse Resp B/P Pulse Ox O2 Delivery O2 Flow Rate FiO2 02/03/17 08:47 97.6 72 18 140/72 97 Intake and Output 02/02/17 02/02/17 02/03/17 15:00 23:00 07:00 Intake Total 720 ml 400 ml Balance 720 ml 400 ml Exam GENERAL: The patient is lying in bed, in no acute distress. HEENT: Pupils equal, round, reactive to light. Extraocular muscles are intact. NECK: Supple. No thyromegaly. LUNGS: Clear to auscultation bilaterally. CARDIOVASCULAR: S1, S2 heard. No rubs or gallops. ABDOMEN: Soft, nontender, nondistended. Normal bowel sounds. No rebound. No guarding. MUSCULOSKELETAL: No lower extremity edema bilaterally. NEUROLOGIC: No focal deficits. Results Result Diagram: 02/03/17 0513 02/03/17 0513 Results 24 hrs Laboratory Tests Test 02/03/17 05:13 Anion Gap 14 Basophils # 0.0 Basophils % 0.4 Blood Urea Nitrogen 9 Calcium Level 8.9 Carbon Dioxide Level 27 Chloride Level 103 Creatinine 0.61 Eosinophils # 0.2 Eosinophils % 3.6 Glucose Level 81 Hematocrit 44.9 Hemoglobin 15.7 Lymphocytes # 2.0 Lymphocytes % 29.0 Mean Corpuscular Hemoglobin 35.4 H Mean Corpuscular Hemoglobin Concent 35.0 Mean Corpuscular Volume 101.4 H Mean Platelet Volume 10.9 H Monocytes # 0.7 Monocytes % 9.6 Neutrophils # 3.9 Neutrophils % 57.1 Nucleated Red Blood Cells # 0.0 Nucleated Red Blood Cells % 0.0 Platelet Count 214 Potassium Level 3.7 Red Blood Count 4.43 Red Cell Distribution Width 11.9 Sodium Level 140 White Blood Count 6.8 Medications Medications Current Medications Ondansetron HCl (Zofran Inj) 4 mg Q6H PRN IV NAUSEA AND/OR VOMITING; Start at 00:00 Acetaminophen (Tylenol Tab) 650 mg Q6H PRN PO PAIN LEVEL 1-3 OR FEVER; Start at 00:00 Acetaminophen/ Hydrocodone Bitart ([place] (5/325)) 1 tab Q6H PRN PO MODERATE PAIN LEVEL 4-6 Last administered on 02/01/17 11:58; Admin Dose 1 TAB; Start at 00:00 Morphine Sulfate (morphine) 2 mg Q4H PRN IV SEVERE PAIN LEVEL 7-10 Last administered on 02/03/17 09:53; Admin Dose 2 MG; Start 01/30/17 at 00:00 Docusate Sodium (Colace) 100 mg Q12H PRN PO CONSTIPATION Last administered on 15:21; Admin Dose 100 MG; Start 01/30/17 at 00:00 Magnesium Hydroxide (Milk Of Mag) 30 ml DAILY PRN PO CONSTIPATION; Start at 00:00 Sodium Biphosphate/ Sodium Phosphate (Fleet Enema) 133 ml DAILY PRN [place] CONSTIPATION; Start 01/30/17 at 00:00 Pantoprazole (Protonix Tab) 40 mg DAILY@06 PO Last administered on 02/03/17 05 :18; Admin Dose 40 MG; Start 01/30/17 at 06:00 Lorazepam (Ativan) 0.5 mg Q6H PRN IV ANXIETY Last administered on 02/01/17 11: 58; Admin Dose 0.5 MG; Start 01/30/17 at 00:00 Hydralazine HCl (Apresoline) 10 mg Q6H PRN IV ELEVATED BLOOD PRESSURE; Start at 00:00 Nitroglycerin (Nitroglycerin (Sl Tab) 0.4 Mg) 1 tab Q5M PRN SL ANGINA; Start at 00:00 Diphenhydramine HCl (Benadryl) 25 mg Q6H PRN IV ITCHING Last administered on t 21:59; Admin Dose 25 MG; Start 01/31/17 at 17:00 JAMES CISNEROS MD Feb 03, 2017 12:47
[2017-02-03] MEDS ORDERED: HYDR-3498 PO (12:57)
--- NOTE | 2017-02-04 20:16 | RADRPT ---
PROCEDURE: MR thoracic spine without and with contrast CLINICAL INDICATION: Intractable back pain TECHNIQUE: An MRI of the thoracic spine was performed utilizing sagittal T1-weighted, sagittal and axial T2-weighted, and sagittal STIR. Following the intravenous administration of 10 cc Magnevist, postcontrast axial and sagittal T1-weighted images are obtained COMPARISON: None available. FINDINGS: Vertebral bodies: Moderate to severe multilevel anterior spondylosis is present most pronounced at T9-10 and T10-11 with suggestion of spondylitis involving the anterior T10-11 osteophytes, faint enh ancement and signal change is suggested in this location. There is no compression fracture deformit y. Some endplate signal changes with enhancement are present at T5-6 and T6-7. The kyphosis is int act as is alignment. Thoracic spinal cord: Normal in signal intensity and caliber at every level. No pathologic intraspin al enhancement is present. Visualized cervical spine: Degenerative disk disease with suggestion of mild central stenosis at C6 -7 with degenerative disk disease at C7-T1 without obvious stenosis T1-2: Disk is signal loss without loss of disk stature and mild disk bulging without protrusion or c entral stenosis. No significant facet arthropathy or foraminal stenosis is present T2-3: Disk is signal loss with mild loss of disk stature and a small 3 mm osteophyte and disk compl ex not causing significant central stenosis. Mild bilateral facet arthropathy is present without fo raminal stenosis. No abnormal enhancement is seen T3-4: Disk is signal loss without loss of disk stature and no evidence of disk protrusion, bulge or central stenosis. Moderate right and mild left facet arthropathy without evidence of foraminal franklin rowing. No abnormal enhancement is present. T4-5: Disk is signal loss with mild loss of disk stature and a small osteophyte and disk complex w ithout central stenosis. Mild right greater than left facet arthropathy is present without foramina l stenosis. No central canal narrowing is present and there is no foraminal stenosis T5-6: Disk is signal loss with moderate loss of disk stature and a small osteophyte and disk compl ex of 3 mm asymmetric to the left causing mild left foraminal stenosis. There is no central canal n arrowing. The facet joints are unremarkable T6-7: Disk signal loss with moderate loss of disk stature asymmetric to the left and a small osteoph yte and disk complex contributing to trace left foraminal stenosis without central canal narrowing. Mild bilateral facet arthropathy is present. There is no abnormal enhancement T7-8: There is signal loss with minimal loss of disk stature and trace disk bulging asymmetric to th e left without protrusion or central stenosis. No facet arthropathy or foraminal narrowing. T8-9: There is signal loss with no loss of disk stature and trace disk bulging without stenosis. Th e facet joints are unremarkable T9-10: There is signal loss without loss of stature, protrusion or central stenosis. Mild left fac et arthropathy. No foraminal stenosis or abnormal enhancement T10-11: There is large anterior right osteophyte and syndesmophyte with some enhancement and edemato us change concerning for spondylitis with mild perivertebral phlegmon. There is no enhancement of t he disk space which is normal and stature and no epidural abnormality. There is no facet arthropath y or central stenosis T11-12: Enhancement along the anterior longitudinal ligament continuous with the T11 vertebral body but no disk abnormality or central stenosis. The facet joints are unremarkable T12-L1: Inferior 212 endplate Schmorl's node no disk abnormality, central stenosis or foraminal franklin rowing. The posterior elements are unremarkable Non spine related findings: No abnormalities of significance are demonstrated. RPTAT:HJJR IMPRESSION: 1. Subtle enhancement along the large syndesmophyte and osteophyte anterior to the right at T10-11 and T11-12 concerning for spondylitis with some bone marrow edema in the anterior T11 vertebral body likely reactive, underlying osteomyelitis is believed to be less likely. No abnormal enhancement of the discs is present at any level. 2. Multilevel degenerative disk disease throughout the thoracic spine greatest at T5-6 and T6-7 wit hout significant central canal or foraminal stenosis at any level. 3. Normal thoracic spinal cord and the central canal without evidence of pathologic intraspinal enh ancement or cord signal alteration. Physician Keyona Date Time Electronically viewed and signed by Physician Keyona on 02/04/2017 20:16 JR/
--- NOTE | 2017-02-05 15:48 | DS ---
DATE OF ADMISSION: 01/29/2017 DATE OF DISCHARGE: 02/03/2017 FINAL DISCHARGE DIAGNOSES: 1. Syncope. 2. Acute on chronic back pain, likely secondary to spinal stenosis and severe degenerative disk dis ease. 3. Lumbar radiculopathy secondary to disk prolapse. 4. History of smoking. 5. Intractable back pain causing debility. IMAGING STUDIES DONE DURING THIS HOSPITALIZATION: Workup for syncope including a carotid Doppler ul trasound, echo and MRI which has been negative. CONSULTATIONS DONE DURING THIS HOSPITALIZATION: None. PROCEDURES PERFORMED DURING THIS HOSPITALIZATION: None. IMAGING STUDIES DONE DURING THIS HOSPITALIZATION: 1. The patient had a brain MRI done which was negative for any acute cerebrovascular accident. 2. The patient had a carotid Doppler ultrasound negative for any acute findings. 3. The patient had a thoracic and lumbar spine MRI which shows spondylitis with some bone marrow ed juli in the anterior T11 vertebral body, likely reactive underlying osteomyelitis is believed to be l ess likely. The patient had severe degenerative joint disk disease with spinal stenosis and disk pr olapse. HOSPITAL COURSE: This is a 61-year-old female with a past medical history of depression, chronic ba ck pain secondary to degenerative joint disease, carpal tunnel syndrome, history of a ____surgery an d hysterectomy. The patient presented with multiple complaints, including generalized weakness, fat igue, inability to walk due to the acute on chronic back pain. She got admitted to the telemetry [facility] for syncope workup. She initially had serial troponins and EKG negative for any acute coronary syndrome. Subsequently, had a stroke workup including a carotid Doppler ultrasound and MRI brain wh ich was negative. She was downgraded to Med/Surg floor where she continues to complain of this back pain. The patient had a physical therapy evaluation and had a subsequent MRI of thoracic and lumba r spine done which revealed severe degenerative disk disease with spondylitis and also had a disk pr olapse causing lumbar radiculopathy. She was recommended to have a physical therapy and neurosurger y evaluation, but the patient did not want to stay in the hospital. She wanted to go home and take care of some social issues. Due to the chronic nature of back pain, she got discharged home with a copy of her MRI results and advised to follow up with neurosurgery as outpatient. DISPOSITION: To home. DISCHARGE CONDITION: Stable and improved compared to admission. DISCHARGE ACTIVITIES: As tolerated, slowly resume to the normal baseline activity. DISCHARGE DIET: Low fat, low sodium diet. DISCHARGE MEDICATIONS: As per medical reconciliation. DISCHARGE FOLLOWUP AND INSTRUCTIONS 1. The patient is to follow up with her own primary care doctor through her HMO insurance in 1 to 2 weeks after discharge. 2. The patient is to follow up with neurosurgery as outpatient, and she will need a referral from h primary care physician to see neurosurgery as outpatient. She has been explained about the disch arge plan and followup instructions. She understood and verbalized understanding. Dictated By: JAMES CISNEROS MD, KP/MARK Conf#: [id number] DID#: [id number]
== END 2017-02-03 15:15 | disposition home or self-care (01) | DRG 312 ==
LOC: FTE 18:34 → TEL 23:06 → PP2 01-31 20:40
PROVIDERS: ADMIT Hospitalist; ATTEND Hospitalist
DX: R55 Syncope and collapse (principal); G89.29 Other chronic pain; M54.9 Dorsalgia, unspecified; M54.16 Radiculopathy, lumbar region; Z87.891 Personal history of nicotine dependence; R53.1 Weakness
CPT/HCPCS: 36415; 70450; 70551; 71010; 72157; 72158; 80048; 80061; 81001; 81003; 82140; 82962; 83036; 83735; 84100; 84439; 84484; 85025; 85610; 85730; 87086; 92610; 93005; 93306; 93880; 96374; 96375; 97162; G0378; J1200; J1644; J2060; J2270; J2405; J3480; J7040